=== PATIENT | male | born 1975 | race Asian ===

== ENCOUNTER 2018-10-18 15:51 | Emergency (ER) | payer OTHER ==
[~2018-10-18] VITALS: Ht 175.3 cm; Wt 61.2 kg
[2018-10-18 18:43] VITALS: BP 126/79
== END 2018-10-18 21:37 | disposition home or self-care (01) ==
LOC: ER 15:51
DX: S00.511A Abrasion of lip, initial encounter (principal); S09.90XA Unspecified injury of head, initial encounter; Y09 Assault by unspecified means; Y93.89 Activity, other specified; Y99.8 Other external cause status; Y92.89 Other specified places as the place of occurrence of the external cause
CPT/HCPCS: 70450; 70486; 72125